=== PATIENT | female | born 2000 | race Two or more races ===

== ENCOUNTER 2020-04-11 11:49 | Observation (INO) | payer MEDICAID ==
[2020-04-11] MEDS ORDERED: PREN-96 PO (11:55)
== END 2020-04-11 13:02 | disposition home or self-care (01) | DRG 566 ==
LOC: LDRP 11:49
PROVIDERS: ADMIT Obstetrics & Gynecology; ATTEND Obstetrics & Gynecology
DX: O99.89 Other specified diseases and conditions complicating pregnancy, childbirth and the puerperium (principal); N13.39 Other hydronephrosis; Z3A.33 33 weeks gestation of pregnancy
CPT/HCPCS: 59025; 76818; 81002; 82962; G0378

== ENCOUNTER 2020-04-18 08:10 | Observation (INO) | payer MEDICAID ==
[~2020-04-18 08:10] MED LIST: PREN-96 PO
== END 2020-04-18 11:00 | disposition home or self-care (01) | DRG 566 ==
LOC: LDRP 08:10
PROVIDERS: ADMIT Specialist; ATTEND Specialist
DX: O99.89 Other specified diseases and conditions complicating pregnancy, childbirth and the puerperium (principal); N13.30 Unspecified hydronephrosis; Z3A.34 34 weeks gestation of pregnancy
CPT/HCPCS: 59025; 76818; 81002; G0378

== ENCOUNTER 2020-04-25 08:25 | Observation (INO) | payer MEDICAID | END 2020-04-25 09:25 | disposition home or self-care (01) | DRG 566 | LOC: LDRP 08:25 | PROVIDERS: ADMIT Obstetrics & Gynecology; ATTEND Obstetrics & Gynecology | DX: O99.89 Other specified diseases and conditions complicating pregnancy, childbirth and the puerperium (principal); N13.30 Unspecified hydronephrosis; Z3A.35 35 weeks gestation of pregnancy | CPT/HCPCS: 59025; 76818; 81002; G0378 ==

== ENCOUNTER 2020-05-02 13:05 | Observation (INO) | payer MEDICAID | END 2020-05-02 14:30 | disposition home or self-care (01) | DRG 566 | LOC: LDRP 13:05 | PROVIDERS: ADMIT Obstetrics & Gynecology; ATTEND Obstetrics & Gynecology | DX: O99.89 Other specified diseases and conditions complicating pregnancy, childbirth and the puerperium (principal); N13.30 Unspecified hydronephrosis; Z3A.36 36 weeks gestation of pregnancy | CPT/HCPCS: 59025; 76818; 81002; G0378 ==

== ENCOUNTER 2020-05-09 13:22 | Observation (INO) | payer MEDICAID | END 2020-05-09 16:11 | disposition home or self-care (01) | DRG 566 | LOC: LDRP 13:22 → UNDODISOB 16:11 | PROVIDERS: ADMIT Specialist; ATTEND Specialist | DX: O26.833 Pregnancy related renal disease, third trimester (principal); O62.9 Abnormality of forces of labor, unspecified; Z3A.37 37 weeks gestation of pregnancy | CPT/HCPCS: 59025; 76818; 81002; G0378 ==

== ENCOUNTER 2020-05-16 07:10 | Observation (INO) | payer MEDICAID | END 2020-05-16 14:24 | disposition home or self-care (01) | DRG 566 | LOC: LDRP 13:20 | PROVIDERS: ADMIT Specialist; ATTEND Specialist | DX: O99.89 Other specified diseases and conditions complicating pregnancy, childbirth and the puerperium (principal); N13.30 Unspecified hydronephrosis; Z3A.38 38 weeks gestation of pregnancy | CPT/HCPCS: 59025; 76818; 81002; G0378 ==

== ENCOUNTER 2020-05-20 04:22 | Inpatient (IN) | payer MEDICAID ==
[~2020-05-20] VITALS: Ht 162.6 cm; Wt 130.6 kg
[2020-05-20] MEDS ORDERED: PENICILLIN G POT 5MILLION UNIT VIAL ONE (04:57)
[2020-05-20] MEDS ORDERED: PENICILLIN G POT 5MIL/D5 50ML 50 ML IV ONE ×2 (04:57→05:00)
[2020-05-20] MEDS ORDERED: LACT. RINGERS/OXYTOCIN 20UNITS 1,000 ML IV SCH (04:58)
[2020-05-20] MEDS ORDERED: LACTATED RINGER'S 1,000 ML IV SCH (04:58)
[2020-05-20] MEDS ORDERED: LIDOCAINE 2%HCL (LOCAL ANESTH.) INJ 20ML MDV ID ONE (05:00)
[2020-05-20] MEDS ORDERED: DERMOPLAST 60ML BOTTLE TOP PRN (05:00)
[2020-05-20] MEDS ORDERED: METHYLERGONOVINE MALEATE 0.2 MG/ML AMP IM PRN (05:00)
[2020-05-20] MEDS ORDERED: PHISODERM TOP SOLN 240ML BTL TOP PRN (05:00)
[2020-05-20] MEDS ORDERED: WITCH HAZEL-GLYCERIN PAD TOP PRN (05:00)
[2020-05-20] MEDS ORDERED: TERBUTALINE SULFATE 1 MG/ML 1ML VIAL SC ONE (05:15)
[2020-05-20 05:43] LABS: Urine Bacteria FEW /hpf (None Seen); Urine Blood 2+ /uL (Negative); Urine Mucus FEW (None Seen); Urine Specific Gravity 1.012 (1.001-1.035); Urine WBC 8 /hpf (0 - 5)
[2020-05-20 05:45] LABS: Basophils # (auto) 0 10 ^3/uL (0-0.2); Basophils % (auto) 0.4 % (0.0-2.0); Eosinophils # (auto) 0.1 10 ^3/uL (0-0.8); Eosinophils % (auto) 0.6 % (0.0-7.0); Lymphocytes # (auto) 2.8 10 ^3/uL (0.4-5.4); Lymphocytes % (auto) 29.8 % (10.0-50.0); Mean Corpuscular Hemoglobin 29.5 pg (28.0-32.0); Mean Corpuscular Hgb Conc. 34.3 g/dL (32.0-36.0); Mean Corpuscular Volume 85.9 fL (80.0-100.0); Monocytes # (auto) 0.7 10 ^3/uL (0-1.3); Monocytes % (auto) 7.5 % (0.0-12.0); Neutrophils # (auto) 5.8 10 ^3/uL (1.6-8.6); Neutrophils % (auto) 61.7 % (37.0-80.0); Nucleated Red Blood Cells % 0.1 %; Platelet Count (auto) 277 10^3/uL (140-450); Red Blood Cells 4.42 10^6/uL (4.0-5.20); Red Cell Distribution Width 13.8 % (11.8-14.3); White Blood Cell 9.4 10^3/uL (4.4-10.8)
[2020-05-20 06:04] LABS: Albumin 2.4 g/dL (3.4-5.0); Calcium 8.6 mg/dL (8.5-10.1); INR 0.94 (0.9-1.15); Partial Thromboplastin Time 27.9 sec (23.64-32.05)
[2020-05-20 06:05] LABS: Amphetamine Screen, Urine NEGATIVE (NEGATIVE); Barbiturate Scree,Urine NEGATIVE (NEGATIVE); Benzodiazephine Screen, Urine NEGATIVE (NEGATIVE); Cannabinoid Screen, Urine NEGATIVE (NEGATIVE); Cocaine Screen, Urine NEGATIVE (NEGATIVE); Opiate Scree,Urine NEGATIVE (NEGATIVE); Phencyclidine Screen, Urine NEGATIVE (NEGATIVE)
[2020-05-20 06:07] LABS: Bilirubin, Total 0.1 mg/dL (0.2-1.0); Total Protein 6.9 g/dL (6.4-8.2)
[2020-05-20 06:16] LABS: Alcohol, Urine < 3.0 mg/dL (0-10)
[2020-05-20] MEDS ORDERED: fentaNYL 200mCg/100ml W ROPIVA 100 ML EPI SCH ×2 (07:45)
[2020-05-20] MEDS ORDERED: NALOXONE HCL 0.4 MG/ML VIAL IV ONE (07:45)
[2020-05-20] MEDS ORDERED: ePHEDrine SULFATE 50 MG/ML AMP IV ONE (07:45)
[2020-05-20] MEDS ORDERED: PENICILLIN G POTASSIUM 2,500,000 UNITS in D5W 5% 50 ML IV SCH (09:00)
[2020-05-20] MEDS ORDERED: IBUPROFEN 600 MG TAB PO PRN (13:45)
--- NOTE | 2020-05-20 16:45 | NUR ---
Ambulation: Patient OOB with standby assistance by RN. Patient ambulated to bathroom with steady gait. Patient unable to void. Pericare teaching provided with returned demonstration by patient. Clean gown provided and bed linen changed. Patient ambulated back to bed with steady gait and no distress noted. Encouraged oral hydration. Educated on need to drink 8 ounces with every feeding. Verbalized understanding. Restarted IV fluids per order.
[2020-05-20 18:30] VITALS: BP 132/78
[2020-05-20 23:00] VITALS: BP 137/81
--- NOTE | 2020-05-20 23:00 | NUR ---
IV removal IV DC'd with sterile technique, catheter fully intact. Pressure dressing applied to site. Patient tolerated procedure well. NOTE:
--- NOTE | 2020-05-21 01:00 | NUR ---
Bottle-feeding Education: Patient encouraged to breastfeed. Benefits of and the risk of providing formula to was discussed. Patient verbalized understanding of the benefits and is aware of risk and insists on bottle-feeding. Formula provided and instruction on formula preperation from the [facility] booklet reviewed with patient.
[2020-05-21 03:00] VITALS: BP 133/76
[2020-05-21 07:00] VITALS: BP 126/71
[2020-05-21 10:40] VITALS: BP 119/65
[2020-05-21 15:14] VITALS: BP 126/62
--- NOTE | 2020-05-21 16:45 | NUR ---
Discharge: Discharge instructions given as ordered. Pt encouraged to follow up with Dr Atwood, [employer] as instructed. All questions and concerns addressed. Patient verbalized understanding. Medication reconciliation completed and copy given to patient. All required/requested vaccines given and copies of vaccinations given to patient. Patient encouraged to prepare to depart unit.
--- NOTE | 2020-05-21 18:09 | NUR ---
Discharge: Patient taken to vehicle via wheelchair with all personal belongings, accompanied by staff and family member. No distress noted at time of departure, no adverse changes in status since initial assessment.
[2020-05-22 12:34] LABS: RPR Non Reactive (Non Reactive)
== END 2020-05-21 18:06 | disposition home or self-care (01) | DRG 560 ==
LOC: LDRP 04:22 → OBSVTOIN 04:55 → LDRP 17:23
PROVIDERS: ADMIT Specialist; ATTEND Specialist
PROC: 10D07Z6 Extraction of Products of Conception, Vacuum, Via Natural or Artificial Opening (ICD-10-PCS; principal; 2020-05-20)
PROC: 0UQGXZZ Repair Vagina, External Approach (ICD-10-PCS; 2020-05-20)
PROC: 3E0R3BZ Introduction of Anesthetic Agent into Spinal Canal, Percutaneous Approach (ICD-10-PCS; 2020-05-20)
PROC: 00HU33Z Insertion of Infusion Device into Spinal Canal, Percutaneous Approach (ICD-10-PCS; 2020-05-20)
DX: O69.81X0 Labor and delivery complicated by cord around neck, without compression, not applicable or unspecified (principal); E66.01 Morbid (severe) obesity due to excess calories; Z37.0 Single live birth; Z3A.39 39 weeks gestation of pregnancy; Z11.59 Encounter for screening for other viral diseases; O99.213 Obesity complicating pregnancy, third trimester; O71.4 Obstetric high vaginal laceration alone
CPT/HCPCS: 36415; 59025; 59409; 62282; 80053; 80307; 81001; 81002; 84112; 85025; 85610; 85730; 86592; 86850; 86900; 86901; 94760; 96360; 96361; 96365; 96366; G0378; J2540; J2590; J7060